=== PATIENT | female | born 1990 | race Caucasian/White ===

== ENCOUNTER 2022-11-21 13:20 | Outpatient (CLI) | payer BC, SELFPAY ==
--- NOTE | ~2022-11-21 | US_ITS ---
EXAMINATION: US thyroid DATE: 11/21/2022 13:40 INDICATION: Right thyroid nodule. TECHNIQUE: Multiple ultrasound images of the thyroid were obtained. COMPARISON: None. FINDINGS: The right thyroid lobe measures 5.9 x 2.2 x 2.9 cm. The left thyroid lobe measures 4.3 x 1.2 x 1.3 c m. In the right thyroid lobe, there is a 3.2 cm solid, hyperechoic, wider than tall nodule with smoo th margin without echogenic foci (TI-RADS TR3). IMPRESSION: 1. Right thyroid nodule. The patient reports history of a benign biopsy. Reviewed, dictated and finalized at location A.
== END 2022-11-21 13:21 ==
PROVIDERS: PCP Internal Medicine; Visit Provider Internal Medicine
DX: E04.1 Nontoxic single thyroid nodule (principal)
CPT/HCPCS: 76536

== ENCOUNTER 2023-04-19 08:30 | Emergency (ER) | payer OTHER, SELFPAY ==
--- NOTE | 2023-04-19 08:33 | ED.BACK ---
HPI - Back Pain/Injury General Chief Complaint: Back Pain/Injury Stated Complaint: Back Pain Time Seen by Provider: 04/19/23 09:14 Source: patient and RN notes reviewed Mode of arrival: ambulatory Limitations: no limitations History of Present Illness HPI Narrative: 32-year-old female presents to the [facility] with complaints of back pain since . States it seems to be getting better and then on Friday, 3 days ago states it became worse. Taken ibuprofen and apply ice tea. Has seen her chiropractor yesterday and was told to come to the [facility] if the pain did not improve. Patient states that she was taking patio, pain started a day or so later. Denies any loss of retention of bowel or bladder. Denies any numbness or tingling. Walks with a normal gait. Patient states the pain starts at her lower back, radiates across her lower back into her anterior thighs. Denies any direct trauma. Onset (ago): week(s) Treatments prior to arrival: NSAIDS and other (heat) Related Data Home Medications Medication Instructions Recorded Confirmed citalopram 40 mg tablet 40 mg PO DAILY 04/19/23 04/19/23 dapagliflozin propanediol 5 mg 5 mg PO DAILY 04/19/23 04/19/23 tablet (Farxiga) duloxetine 60 mg capsule,delayed 60 mg PO DAILY 04/19/23 04/19/23 release lisdexamfetamine 70 mg capsule 70 mg PO DAILY 04/19/23 04/19/23 (Vyvanse) semaglutide 1 mg/dose (4 mg/3 mL) 4 mg subcut WEEKLY 04/19/23 04/19/23 subcutaneous pen injector (Ozempic) Allergies Allergy/AdvReac Type Severity Reaction Status Date / Time amoxicillin Allergy Hives Verified 04/19/23 08:54 Review of Systems Review of Systems: All systems reviewed & are unremarkable except as noted in HPI and below Constitutional: Constitutional: Reports no additional constitutional complaints Eyes: Eyes: Reports no additional eye complaints ENT: Reports system reviewed and no additional complaints, except as documented Cardiovascular: Cardiovascular: Reports no additional cardiovascular complaints, Denies chest pain and Denies dyspnea Respiratory: Respiratory: Reports no additional respiratory complaints, Denies chest congestion, Denies cough and Denies dyspnea Gastrointestinal: Gastrointestinal: Reports no additional gastrointestinal complaints, Denies abdominal pain, Denies nausea and Denies vomiting Genitourinary: Genitourinary: Reports no additional female genitourinary complaints Musculoskeletal: Musculoskeletal: Reports as per HPI and Reports back pain (Lower lumbar) Integumentary/Breasts: Skin/Breast: Reports system reviewed and no additional complaints, except as docu Neurologic: Reports system reviewed and no additional complaints, except as documented Psychiatric: Psychiatric: Reports no additional psychiatric complaints Allergic/Immunologic: Allergic/Immunologic: Reports no additional allergic/immunologic complaints PMFSH Past Medical History Medical History Anxiety and depression Diabetes Obesity Comments At the time of my signature, I reviewed and agree with the nursing past medical, surgical, social, and family history. There is no relevant family history pertinent to the patient complaint. Exam Const: General: cooperative, healthy appearing, comfortable, no acute distress, well developed, alert and well nourished Nutritional Appearance: well nourished and obese Orientation/consciousness: patient oriented x3 Limitations: no limitations HENMT: Head: normal to inspection Ears: hearing grossly normal bilaterally and external ears normal Face/Nose/Sinus: Normal external nose present, Normal nares present, Normal nasal mucous membranes and turbinates present, normal facial exam and face symmetric Face and sinus: normal facial exam and face symmetric Eyes: General: appearance normal, both eyes and all related structures Alignment and Position: alignment normal Periorbital: periorbital
[2023-04-19 08:57] VITALS: BP 133/90; PULSE 82; RESP 16; TEMP 36.6; O2SAT 98
== END 2023-04-19 09:36 | disposition home or self-care (01) ==
PROVIDERS: Emergency Provider Nurse Practitioner; PCP Internal Medicine
DX: S39.012A Strain of muscle, fascia and tendon of lower back, initial encounter (principal); E11.9 Type 2 diabetes mellitus without complications; Z79.899 Other long term (current) drug therapy; X58.XXXA Exposure to other specified factors, initial encounter
CPT/HCPCS: 99213; G0463

== ENCOUNTER 2023-06-06 14:30 | Outpatient (RCR) | payer OTHER, SELFPAY ==
--- NOTE | 2023-05-09 15:38 | OPREHPOC ---
Outpatient Therapy Plan of Care This is a Multidisciplinary Plan of Care that may contain components documented by all disciplines (PT, OT, and ST.) PT Problem 1 PT Problem #1 Knowledge Deficit PT Goal 1 Goal 1* indep with HEP 2* use correct body mechanics with lifting floor/ waist height PT Problem 2 PT Problem #2 Pain PT Goal 1 Goal 1* pain rating at worst of 5/10 2* pt report times of NO pain 3* self assessment Oswestry rating of 24% limitation in activity level 4* intermittent, radicular pain into both LE, to knee at worst PT Problem 3 PT Problem #3 Impaired Flexibility PT Goal 1 Goal improve flexibility of hips, to maintain balance of hips 1* supine hamstring L 75' 2* no pain with L hamstring supine stretch 3* prone hip IR with knee flexion 90' R = L ROM PT Problem 4 PT Problem #4 Impaired Strength PT Goal 1 Goal increase trunk and hip strength, to stabilize spine and support to spine: 1* bilateral UE box lift 20# floor/waist height x 3 reps 2* perform 20 reps of mat strengthening exercises with good stability 3* stand with sacrum in neutral/ no forward rotation R
--- NOTE | 2023-05-09 15:51 | PTOPEVAL1 ---
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 She has a history of chronic back pain, that flared up in Mar when digging the ground for a patio. The pain is less than it was initially. Self assessment Oswestry rating of 36% limitation in activity level. She is able to perform her home and work tasks, with increased pain. With the evaluation: standing trunk flexion pain > extension motions; tightness over L hamstring with pain in back; decreased strength and stability of spine, most pain over sacrum; Skilled PT services are indicated for modalities to decrease pain and spasms, therapeutic exercises to incraease trunk and LE ROM and strength, with education for HEP and posture/body mechanics. Plan of Care Interventions Electrical Stimulation,Hot Pack/Cold Pack,Manual Therapy,Mechanical Traction,Neuro Re-education, Patient Education,Therapeutic Activities, Therapeutic Exercise,Ultrasound,Other Other Interventions taping, [facility] PT Services Indicated Yes Treatment Frequency and 1-2x/wk x 5
--- NOTE | 2023-06-06 14:57 | PTOPDC ---
Assessment and note entered by Bonny Hampton, PT Discharge Information Assessment Status Discharge Diagnosis lumbar pain Onset Mar 2023 Subjective Information is doing much better, do not have leg pain anymore have been doing the exercises at home and they help ready to be finished with therapy Reported Pain Level Pain Score Self Report Additional Pain Score Comments pain range 0-2/10 in back, no radicular pain into legs increase pain with pressing on area decrease pain; rest is not taking any pain meds; gabapentin helped- no longer taking it; Assessment PT Clinical Summary Lisa has received 4 PT sessions. Compared to the initial evaluation: pain decreased from 4-9/10 to 0-2/10; no longer has radicular pain into LE's; self assessment Oswestry from 36% to 0% limitation in activity level; standing trunk and supine hip motions do not elicit pain; increased flexibility of R and L hamstring and hip IR is equal ROM; bilateral UE box lift from waist /floor height 30# with good technique and no pain increase; education completed for HEP and body mechanics. All of the goals were met. Discharge PT services. She is to continue with her HEP and monitoring her back posture/ positioning. Plan of Care PT Services Indicated No
== END 2023-06-06 15:28 | disposition home or self-care (01) ==
LOC: ANHPT 14:30
PROVIDERS: PCP Internal Medicine; Visit Provider Internal Medicine
DX: M54.30 Sciatica, unspecified side (principal)
CPT/HCPCS: 97014; 97110; 97161; 97530; G0283

== ENCOUNTER 2023-09-13 14:38 | Emergency (ER) | payer OTHER, SELFPAY ==
[2023-09-13 14:48] VITALS: BP 162/76; PULSE 106; RESP 16; TEMP 37.3; O2SAT 99
--- NOTE | 2023-09-13 15:06 | ED.URI ---
HPI - URI/Sore Throat General Chief Complaint: Upper Respiratory Infection Stated Complaint: FEVER/CHILLS/SORE THROAT/DRAINAGE Time Seen by Provider: 09/13/23 15:06 History of Present Illness HPI Narrative: 32 y/o female presented for c/o sore throat, nasal congestion and drainage, fever. Onset 3 days. Taking ibuprofen for symptoms, last dose was yesterday. 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 Denies sob, wheezing, cp, palpitations, cough, n/v/d. Related Data Home Medications Medication Instructions Recorded Confirmed duloxetine 60 mg capsule,delayed 60 mg PO DAILY 04/19/23 09/13/23 release lisdexamfetamine 70 mg capsule 70 mg PO DAILY 04/19/23 09/13/23 (Vyvanse) semaglutide 1 mg/dose (4 mg/3 mL) 4 mg subcut WEEKLY 04/19/23 09/13/23 subcutaneous pen injector (Ozempic) promethazine 12.5 mg tablet 12.5 mg PO DIRECTED 09/13/23 09/13/23 Allergies Allergy/AdvReac Type Severity Reaction Status Date / Time amoxicillin Allergy Hives Verified 09/13/23 15:20 Review of Systems Review of Systems: CONSTITUTIONAL: reports body aches, fever, chills, or sweats. EYES: Denies visual changes, redness, or discharge. ENT: reports rhinorrhea, congestion, sore throat CARDIOVASCULAR: Denies chest pain, palpitations, or edema. RESPIRATORY: Denies dyspnea. GASTROINTESTINAL: Denies abdominal pain, nausea, vomiting, or diarrhea. SKIN: Denies rash, itching, or wounds. MUSCULOSKELETAL: Denies back pain, joint pain NEUROLOGIC: Denies headache PMFSH Past Medical History Medical History Anxiety and depression Diabetes Obesity Exam Narrative: GENERAL: Ill-appearing, no acute distress. EYES: conjunctivae clear ENT: Mucous membranes moist. TMs pearly morales with normal light reflex bilaterally; no tragal tenderness. Oropharynx erythematous without lesions. Tonsils enlarged 2+ and without exudate. No drooling, no hoarseness, no trismus, uvula midline. No tripod positioning, hot potato voice, or soft palate swelling. NECK: Supple. left anterior cervical lymphadenopathy CHEST: Clear to auscultation, breath sounds equal. No respiratory distress, speaks in full sentences. HEART: Regular rate and rhythm. No murmur heard. SKIN: Warm, sweaty NEURO: Alert and oriented x3. Course Course Emergency Course: Patient is aware of diagnosis, understands and agrees to treatment plan. Anticipatory guidance given. Patient agrees to follow-up as directed and is aware of reasons to seek care at the emergency department. Portions of this record may have been created with voice recognition software Level of Care: Express Care Visit Vital Signs Vital signs: Vital Signs Temperature 99.1 F 09/13/23 14:48 Pulse Rate 106 H 09/13/23 14:48 Respiratory Rate 16 09/13/23 14:48 Blood Pressure 162/76 H 09/13/23 14:48 Pulse Oximetry 99 09/13/23 14:48 Temperature 99.1 F 09/13/23 14:48 Pulse Rate 106 H 09/13/23 14:48 Respiratory Rate 16 09/13/23 14:48 Blood Pressure 162/76 H 09/13/23 14:48 Pulse Oximetry 99 09/13/23 14:48 MDM - URI/Sore Throat MDM Narrative Medical decision making narrative: Neg flu, covid, strep result reviewed with pt. Will treat for strep at this time with akbar dillon allergy. Advise supportive treatments. Patient is appropriate for outpatient treatment and follow-up. Differential Diagnosis Differential diagnosis: Likely upper respiratory infection, viral infection and pharyngitis Discharge Plan Discharge Clinical Impression: Upper respiratory infection Patient Disposition: Home, Self-Care Condition: Stable Instructions: Antibiotic Form Additional Instructions: Flu and COVID negative. Take the antibiotic as directed. Fever and sore throat typically resolve within one to three days. Most patients can return to work, after 12 to 24 hours of antibiotic therapy, provided you are fever free and o
== END 2023-09-13 15:33 | disposition home or self-care (01) ==
PROVIDERS: Emergency Provider Nurse Practitioner Family; PCP Internal Medicine
DX: J06.9 Acute upper respiratory infection, unspecified (principal); F41.8 Other specified anxiety disorders; E11.9 Type 2 diabetes mellitus without complications; E66.9 Obesity, unspecified; Z68.43 Body mass index [BMI] 50.0-59.9, adult; Z20.822 Contact with and (suspected) exposure to COVID-19
CPT/HCPCS: 87081; 87426; 87804; 87880; 99213; G0463

== ENCOUNTER 2023-09-15 19:39 | Emergency (ER) | payer OTHER, SELFPAY ==
--- NOTE | 2023-09-15 19:42 | ED.EYEPROB ---
HPI - Eye Problem General Chief complaint: Eye Problems Stated complaint: [facility] Source: patient and RN notes reviewed Mode of arrival: ambulatory Limitations: no limitations History of Present Illness HPI Narrative: Patient is a 32-year-old female who presents to the [facility] with complaints of right eye pain, redness, and drainage. Patient states that she woke up this morning and had itching and crusting noted to bilateral eyes. She states that her right eye continued to have drainage throughout the day. Purulent drainage noted at this time. She denies visual disturbance. 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 Related Data Home Medications Medication Instructions Recorded Confirmed duloxetine 60 mg capsule,delayed 60 mg PO DAILY 04/19/23 09/15/23 release lisdexamfetamine 70 mg capsule 70 mg PO DAILY 04/19/23 09/15/23 (Vyvanse) semaglutide 1 mg/dose (4 mg/3 mL) 4 mg subcut WEEKLY 04/19/23 09/15/23 subcutaneous pen injector (Ozempic) promethazine 12.5 mg tablet 12.5 mg PO DIRECTED 09/13/23 09/15/23 Allergies Allergy/AdvReac Type Severity Reaction Status Date / Time amoxicillin Allergy Hives Verified 09/13/23 15:20 Review of Systems Review of Systems: CONSTITUTIONAL: Denies fever, chills, or sweats. EYES: Denies visual changes, but reports right eye redness and discharge. ENT: Denies otalgia and sore throat CARDIOVASCULAR: Denies chest pain, palpitations, or edema. RESPIRATORY: Denies cough or dyspnea. GASTROINTESTINAL: Denies abdominal pain, nausea, vomiting, or diarrhea. GENITOURINARY: Denies dysuria or hematuria. SKIN: Denies rash or itching. MUSCULOSKELETAL: Denies back pain, joint pain, or myalgia. NEUROLOGIC: Denies headache, numbness, or weakness. Pertinent positives per HPI. PMFSH Past Medical History Medical History Anxiety and depression Diabetes Obesity Comments At the time of my signature, I reviewed and agree with the nursing past medical, surgical, social, and family history. There is no relevant family history pertinent to the patient complaint. Exam Narrative: GENERAL: This is a well-nourished, well-developed patient, in no apparent distress. HEAD: normocephalic, atraumatic. EYES: Sclera clear/white on left; reddened on right. Right eye drainage present. Vision is grossly intact. EARS: External ears normal, auditory canals clear and without drainage, TMs normal without perforation. Hearing grossly intact. NOSE: External nose normal with no obvious nasal discharge, nares without redness, no rhinorrhea. THROAT: Mucous membranes moist, posterior pharynx clear. NECK: Neck supple, non-tender without lymphadenopathy, masses or thyromegaly. CARDIOVASCULAR: Regular rate and rhythm without murmurs, gallops, or rubs. RESPIRATORY: Clear to auscultation. Breath sounds equal bilaterally. No wheezes, rales, or rhonchi. GASTROINTESTINAL: Abdomen soft, non-tender, nondistended. Bowel sounds are active. No hepato-splenomegaly, or palpable masses. No guarding. SKIN: warm, intact with no suspicious lesions or rash, good texture and turgor. NEURO: awake, alert, and oriented to person, place and time. There were no obvious focal neurologic abnormalities. Course Course Level of Care: Express Care Visit Vital Signs Vital signs: Vital Signs Temperature 97.7 F 09/15/23 19:43 Pulse Rate 95 09/15/23 19:43 Respiratory Rate 16 09/15/23 19:43 Blood Pressure 127/99 H 09/15/23 19:43 Pulse Oximetry 98 09/15/23 19:43 Oxygen Delivery Room Air 09/15/23 19:43 Temperature 97.7 F 09/15/23 19:43 Pulse Rate 95 09/15/23 19:43 Respiratory Rate 16 09/15/23 19:43 Blood Pressure 127/99 H 09/15/23 19:43 Pulse Oximetry 98 09/15/23 19:43 Oxygen Delivery Room Air 09/15/23 19:43 Reviewed MDM - Eye Problem MDM Narrative Medical decision making narrative: [place]
[2023-09-15 19:43] VITALS: BP 127/99; PULSE 95; RESP 16; TEMP 36.5; O2SAT 98
== END 2023-09-15 19:52 | disposition home or self-care (01) ==
PROVIDERS: Emergency Provider Nurse Practitioner; PCP Internal Medicine
DX: H10.31 Unspecified acute conjunctivitis, right eye (principal); F41.8 Other specified anxiety disorders; E11.9 Type 2 diabetes mellitus without complications; E66.9 Obesity, unspecified; Z68.43 Body mass index [BMI] 50.0-59.9, adult
CPT/HCPCS: 99213; G0463

== ENCOUNTER 2023-09-18 14:45 | Outpatient (CLI) | payer OTHER, SELFPAY ==
--- NOTE | ~2023-09-18 | CT_ITS ---
EXAMINATION: CT soft tissue neck w con DATE: 09/18/2023 15:59 INDICATION: Left peritonsillar abscess. TECHNIQUE: Computed tomography (CT) of the neck was performed with 75 mL Omnipaque-350 intravenous co ntrast. Automated exposure control and iterative reconstruction technique were employed. The dose-ashley gth product was 629.67 mGy-cm. COMPARISON: Thyroid ultrasound 11/21/2022 FINDINGS: There is a stable 2.8 cm nodule in right thyroid lobe and patient. The patient previously r eported history of a benign biopsy. There is mild bilateral hilar internal jugular chain lymphadenopa thy. For example, a right internal jugular chain node measures 2.1 x 1.7 cm. The palatine tonsils are enlarged. No abscess. The adenoids are enlarged. There is mild mucosal thickening in the paranasal s inuses. The cervical carotid arteries are normal. There is mild cervical spondylosis. IMPRESSION: 1. Enlarged palatine tonsils and adenoids. No abscess. 2. Mild bilateral high internal jugular chain lymphadenopathy, likely reactive. Reviewed, dictated and finalized at location E.
== END 2023-09-18 14:46 | disposition home or self-care (01) ==
PROVIDERS: PCP Internal Medicine; Visit Provider Internal Medicine
DX: J35.1 Hypertrophy of tonsils (principal); R59.0 Localized enlarged lymph nodes
CPT/HCPCS: 70491; Q9967

== ENCOUNTER 2023-09-27 10:36 | Emergency (ER) | payer OTHER, SELFPAY ==
--- NOTE | ~2023-09-27 | XR_ITS ---
EXAMINATION: XR ankle RT min 3V DATE: 09/27/2023 11:22 INDICATION: Right ankle injury and pain and swelling. TECHNIQUE: 4 views of right ankle were obtained. COMPARISON: None. FINDINGS: Bone alignment is normal. No fracture. There is mild ankle joint osteoarthritis. There is m ild talonavicular joint osteoarthritis. There are enthesophytes the posterior and plantar aspects of calcaneal tuberosity. Partially visualized are plate and screws in medial right foot. There is ankle soft tissue swelling. IMPRESSION: 1. Mild polyarticular osteoarthritis. Reviewed, dictated and finalized at location A.
[2023-09-27 10:46] VITALS: BP 133/44; PULSE 97; RESP 16; TEMP 36.6; O2SAT 98
[2023-09-27 10:54] VITALS: BP 133/44; PULSE 97; RESP 16; TEMP 36.6; O2SAT 98
--- NOTE | 2023-09-27 11:05 | ED.LOWEXIN ---
HPI - Extremity Injury (Lower) General Chief Complaint: Extremity Injury, Lower Stated Complaint: Rt Ankle Pain Due to Fall Time Seen by Provider: 09/27/23 11:21 Source: patient, RN notes reviewed and old records reviewed Mode of arrival: ambulatory Limitations: no limitations History of Present Illness HPI Narrative: 32-year-old female to Express Care from complaint right ankle pain and swelling after twisting ankle on uneven rocks/ground. Patient endorses history of prior sprains to same ankle. Patient has attempted to treat at home with Tylenol and ibuprofen with little relief. Patient utilizing a cane upon arrival to assist with walking. Patient denies numbness, tingling, weakness. Related Data Home Medications Medication Instructions Recorded Confirmed duloxetine 60 mg capsule,delayed 60 mg PO DAILY 04/19/23 09/27/23 release lisdexamfetamine 70 mg capsule 70 mg PO DAILY 04/19/23 09/27/23 (Vyvanse) semaglutide 1 mg/dose (4 mg/3 mL) 4 mg subcut WEEKLY 04/19/23 09/27/23 subcutaneous pen injector (Ozempic) promethazine 12.5 mg tablet 12.5 mg PO DIRECTED 09/13/23 09/27/23 clindamycin HCl 150 mg capsule mg 09/27/23 levofloxacin 500 mg tablet mg 09/27/23 09/27/23 Allergies Allergy/AdvReac Type Severity Reaction Status Date / Time amoxicillin Allergy Hives Verified 09/27/23 10:47 Review of Systems Review of Systems: All systems reviewed & are unremarkable except as noted in HPI and below Constitutional: Constitutional: Reports no additional constitutional complaints Eyes: Eyes: Reports no additional eye complaints ENT: Reports system reviewed and no additional complaints, except as documented Cardiovascular: Cardiovascular: Reports no additional cardiovascular complaints, Denies chest pain and Denies dyspnea Respiratory: Respiratory: Reports no additional respiratory complaints, Denies cough and Denies dyspnea Musculoskeletal: Musculoskeletal: Reports as per HPI, Reports abnormal gait, Denies deformity, Reports arthralgias, Reports joint swelling, Reports limited range of motion, Denies muscle weakness, Denies numbness and Denies tingling Neurologic: Reports system reviewed and no additional complaints, except as documented Psychiatric: Psychiatric: Reports no additional psychiatric complaints PMFSH Past Medical History Medical History Anxiety and depression Diabetes Obesity Comments At the time of my signature, I reviewed and agree with the nursing past medical, surgical, social, and family history. There is no relevant family history pertinent to the patient complaint. Exam Const: General: cooperative, no acute distress, alert, in distress mild (from pain), uncomfortable and well nourished Nutritional Appearance: well nourished Orientation/consciousness: patient oriented x3 Limitations: no limitations HENMT: Head: normal to inspection Ears: external ears normal Face/Nose/Sinus: Normal external nose present, Normal nares present, normal facial exam, No erythema and No edema Face and sinus: normal facial exam, no erythema and no edema Mouth: Yes Normal oral and palatal mucosa present Eyes: General: appearance normal, both eyes and all related structures Neck: Neck: normal visual inspection, full ROM and no meningeal signs Lymphatic: no lymphadenopathy noted and no lymphedema noted Chest: Chest palpation & inspection: normal inspection of the chest Resp: Effort & Inspection: normal respiratory effort and able to speak in complete sentences Auscultation: clear to auscultation bilaterally Cardio: Jugular venous distension: no JVD Rate: regular rate Rhythm: regular rhythm Back/Spine/Pelvis: Cervical Spine: cervical ROM normal Skin: General skin exam: normal color, no rashes or lesions noted and turgor normal Neuro: General: patient oriented x3, gait normal, moves all extremities and no meningeal signs Speech: normal s
== END 2023-09-27 11:50 | disposition home or self-care (01) ==
PROVIDERS: Emergency Provider Nurse Practitioner Family; PCP Internal Medicine
DX: S93.401A Sprain of unspecified ligament of right ankle, initial encounter (principal); S96.911A Strain of unspecified muscle and tendon at ankle and foot level, right foot, initial encounter; X50.9XXA Other and unspecified overexertion or strenuous movements or postures, initial encounter; E11.9 Type 2 diabetes mellitus without complications; E66.9 Obesity, unspecified; Z68.43 Body mass index [BMI] 50.0-59.9, adult; F41.9 Anxiety disorder, unspecified; F32.A Depression, unspecified
CPT/HCPCS: 73610; 99213; G0463

== ENCOUNTER 2023-10-07 10:50 | Outpatient (CLI) | payer OTHER, SELFPAY ==
--- NOTE | ~2023-10-07 | XR_ITS ---
AP and lateral views of the right tibia/fibula Clinical History: Pain Findings: No acute fracture or dislocation is seen. Osseous alignment is anatomic. Joint spaces are p reserved without significant erosive or degenerative change. Soft tissues are unremarkable. Impression: Unremarkable right tib-fib radiographs. Reviewed, dictated and finalized at [facility]. Impression: Unremarkable right tib-fib radiographs.
== END 2023-10-07 10:51 | disposition home or self-care (01) ==
PROVIDERS: PCP Internal Medicine; Visit Provider Internal Medicine
DX: M25.571 Pain in right ankle and joints of right foot (principal)
CPT/HCPCS: 73590

== ENCOUNTER 2024-06-23 18:40 | Emergency (ER) | payer OTHER, SELFPAY ==
[2024-06-23 19:05] VITALS: BP 121/86; PULSE 93; RESP 16; TEMP 36.8; O2SAT 97
--- NOTE | 2024-06-23 19:33 | ED.URI ---
HPI - URI/Sore Throat General Chief Complaint: Upper Respiratory Infection Stated Complaint: SORE THROAT/EARACHE/SINUS Time Seen by Provider: 06/23/24 19:33 Source: patient Mode of arrival: ambulatory Limitations: no limitations History of Present Illness HPI Narrative: 33-year-old female presents with complaint of sinus congestion and pressure, postnasal drainage, sore throat, throat swelling, right ear pain. Symptoms getting progressively worse over the past 2 weeks. Afebrile. Taking [id number] Sudafed with no relief of symptoms. Has intermittently tried Flonase. All systems reviewed and negative except as noted above. Related Data Home Medications ?Medication ?Instructions ?Recorded ?Confirmed ?Last Taken ?Type lisdexamfetamine 70 mg capsule 70 mg PO DAILY 04/19/23 10/23/23 Unknown History (Vyvanse) dapagliflozin propanediol 5 mg mg 06/23/24 Unknown History tablet (Farxiga) levonorgestrel (Mirena) 1 device intrauterine ONCE 06/23/24 Unknown History Allergies Allergy/AdvReac Type Severity Reaction Status Date / Time amoxicillin Allergy Hives Verified 06/23/24 19:24 Review of Systems Review of Systems: CONSTITUTIONAL: Denies fever, chills, or sweats. EYES: Denies visual changes, redness, or discharge. ENT: Reports rhinorrhea, congestion, sore throat, right ear pain CARDIOVASCULAR: Denies chest pain, palpitations, or edema. RESPIRATORY: Denies cough or dyspnea. GASTROINTESTINAL: Denies abdominal pain, nausea, vomiting, or diarrhea. GENITOURINARY: Denies dysuria or hematuria. SKIN: Denies rash or itching. MUSCULOSKELETAL: Denies back pain, joint pain, or myalgia. NEUROLOGIC: Denies headache, numbness, or weakness. PSYCHIATRIC: Denies anxiety or depression. All other systems reviewed are negative, except as documented in HPI. [facility] Past Medical History Medical History (Updated 06/23/24 @ 19:40 by Jinny Diaz NP) Obesity Diabetes Anxiety and depression Surgical History Surgical History (System 11/24/23 @ 08:17 by Akhil Murphy) History of foot surgery Social History Social History (System 11/24/23 @ 08:17 by Akhil Murphy) Smoking status: Never smoker Alcohol intake: never Substance use: current Substance use type: marijuana Do You Feel Safe in your Home?: Yes Lack of Transportation: No Lack of Food: Never True Current Housing: I Have Housing Concerned About Future Housing: No Difficulty Paying Gas/Electric Bills: No Difficulty Paying for Meds: No Currently Unemployed: No Education: Master's Degree or Higher Difficulty w/ Childcare or Family Care: No Living arrangements: alone 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 There is no relevant family history pertinent to the presenting complaint. Exam Narrative: GENERAL: This is a well-nourished, well-developed patient, in no apparent distress. HEAD: normocephalic, atraumatic. EYES: PERRL. Sclera clear/white. Vision is grossly intact. EARS: External ears normal, auditory canals clear and without drainage, fluid bilateral TMs without erythema or perforation. Hearing grossly intact. NOSE: External nose normal congestion with purulent nasal drainage, erythema and swelling to bilateral nares. THROAT: Mucous membranes moist, erythematous with swelling. Purulent postnasal drainage. Exudates. NECK: Neck supple, non-tender without lymphadenopathy, masses or thyromegaly. CARDIOVASCULAR: Regular rate and rhythm without murmurs, gallops, or rubs. RESPIRATORY: Clear to auscultation. Breath sounds equal bilaterally. No wheezes, rales, or rhonchi. SKIN: warm, Dry, intact with no suspicious lesions or rash, good texture and turgor. NEURO: awake, alert, and oriented to person, place and time. There were no obvious focal neurologic abnormalities. EXTREMITIES: No joint tenderness, effusion, or edema noted. Course Course Level of Care: Express Care Visit Vital Signs Vital signs: Vital Signs Temperature 36.8 C 06/23/24 19:05 Pulse Rate 93 06/23/24 19:05 Respiratory Rate 16 06/23/24 19:05 Blood Pressure 121/86 06/23/24 19:05 Pulse Oximetry 97 06/23/24 19:05 Temperature 36.8 C 06/23/24 19:05 Pulse Rate 93 06/23/24 19:05 Respiratory Rate 16 06/23/24 19:05 Blood Pressure 121/86 06/23/24 19:05 Pulse Oximetry 97 06/23/24 19:05 Reviewed MDM - URI/Sore Throat MDM Narrative Medical decision making narrative: Will treat patient for bacterial sinusitis due to duration of symptoms and exam findings. Strep test negative. Strep culture ordered. Patient is alert, nontoxic. Please be advised this is a medical document. It is intended for dqbr-kk-olau communication. It is written in medical language and may contain unfamiliar abbreviations or verbiage. Medical documents are intended to carry relevant information, facts as evident, and the clinical opinion of the practitioner at the time of the encounter. This report may have been done utilizing a voice recognition system. Attempts have been made to correct errors. However, there may be uncorrected grammatical, spelling, and recognition errors present. The file time of this note does not necessarily represent the time of service. Differential Diagnosis Differential diagnosis: Likely upper respiratory infection, otitis media, sinusitis, viral infection, influenza and pharyngitis Discharge Plan Discharge Clinical Impression: Acute bacterial sinusitis Patient Disposition: Home, Self-Care Condition: Stable Instructions: Antibiotic Form, Sinusitis (ED) Additional Instructions: Your strep test was negative today. A strep culture was ordered and results will take 24-48 hours. Take medications as prescribed. Continue using [id number]-xeleoph Flonase as directed on packaging. Purchase an uazl-mvj-uoxxtpm antihistamine such as Claritin or Zyrtec and take daily. Take Tylenol or ibuprofen every 6-8 hours as needed for pain and fever. Place cool mist humidifier in bedroom where you sleep. Drink at least 64 oz of water a day. Follow-up with your doctor if symptoms are not improving. Patient Language: Hungarian Prescriptions: New doxycycline hyclate 100 mg capsule 100 mg PO BID 7 Days Qty: 14 0RF methylprednisolone [Medrol (Esteban)] 4 mg tablets,dose pack See Rx Instructions PO .COMPLEX Qty: 21 0RF Rx Instructions: orally per package directions No Action lisdexamfetamine [Vyvanse] 70 mg capsule 70 mg PO DAILY dapagliflozin propanediol [Farxiga] 5 mg tablet Mirena 21 mcg/24hr (up to 8 yrs) 52 mg intrauterine device 1 device intrauterine ONCE Rx Instructions: as a single dose Follow-up/Referrals: PHYSICIAN,[employer]OR [employer] [Primary Care Provider] - Time of Disposition: 19:42
[2024-06-23 19:36] LABS: EDSTREPNEGPOS1 Negative (Negative)
== END 2024-06-23 19:46 | disposition home or self-care (01) ==
PROVIDERS: Emergency Provider Nurse Practitioner Family
DX: J01.90 Acute sinusitis, unspecified (principal); E11.9 Type 2 diabetes mellitus without complications; E66.9 Obesity, unspecified; Z68.42 Body mass index [BMI] 45.0-49.9, adult; F12.90 Cannabis use, unspecified, uncomplicated
CPT/HCPCS: 87081; 87880; 99213; G0463

== ENCOUNTER 2024-09-13 08:10 | Emergency (ER) | payer OTHER, SELFPAY ==
[2024-09-13 08:17] VITALS: BP 130/92; PULSE 95; RESP 16; TEMP 36.2; O2SAT 98
--- NOTE | 2024-09-13 08:32 | ED_ITS ---
HPI - Female Genitourinary General Chief complaint: Urogenital-Female Stated complaint: YEAST INFECTION Source: patient Mode of arrival: ambulatory Limitations: no limitations History of Present Illness HPI Narrative: Patient is a 33 year old female who presents to the clinic with complaints of itching and burning to the outside of the vagina x 1 day. She states that she has had yeast infections in the past, and it has presented the same way. Patient is currently on Farxiga. Denies any concern for STD's, nausea, vomiting, diarrhea, and urinary complaints. Related Data Home Medications ?Medication ?Instructions ?Recorded ?Confirmed ?Last Taken ?Type lisdexamfetamine 70 mg capsule 70 mg PO DAILY 04/19/23 10/23/23 Unknown History (Vyvanse) dapagliflozin propanediol 5 mg mg 06/23/24 Unknown History tablet (Farxiga) levonorgestrel (Mirena) 1 device intrauterine ONCE 06/23/24 Unknown History Allergies Allergy/AdvReac Type Severity Reaction Status Date / Time amoxicillin Allergy Hives Verified 06/23/24 19:24 Review of Systems Review of Systems: CONSTITUTIONAL: Denies body aches, fever, chills, or sweats. CARDIOVASCULAR: Denies chest pain, palpitations, or edema. RESPIRATORY: Denies cough or dyspnea. GASTROINTESTINAL: Denies abdominal pain, nausea, vomiting, or diarrhea. GENITOURINARY: Denies dysuria, frequency, urgency, hematuria, flank pain, discharge. Reports itching and burning to outside of the vagina. SKIN: Denies rash, itching, or wounds. MUSCULOSKELETAL: Denies back pain or myalgia. All systems reviewed & are unremarkable except as noted in HPI and below [facility] Past Medical History Medical History (Updated 09/13/24 @ 08:34 by Gisel Landis, FRANCHESCA) Obesity Diabetes Anxiety and depression Surgical History Surgical History (System 11/24/23 @ 08:17 by Akhil Murphy) History of foot surgery Social History Social History (System 11/24/23 @ 08:17 by Akhil Murphy) Smoking status: Never smoker Alcohol intake: never Substance use: current Substance use type: marijuana Do You Feel Safe in your Home?: Yes Lack of Transportation: No Lack of Food: Never True Current Housing: I Have Housing Concerned About Future Housing: No Difficulty Paying Gas/Electric Bills: No Difficulty Paying for Meds: No Currently Unemployed: No Education: Master's Degree or Higher Difficulty w/ Childcare or Family Care: No Living arrangements: alone 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 Please see nursing chart for further information. There is no relevant family history pertinent to the presenting complaint. Exam Narrative: GENERAL: Well-appearing and in no acute distress. ENT: Mucous membranes pink and moist. NECK: Normal AROM. ?Supple. ? CHEST: ?No respiratory distress. Clear to auscultation. HEART: Regular rate and rhythm. ABDOMEN: Soft, nontender, nondistended, normal active bowel sounds. ?No CVA tenderness. SKIN: Warm, dry, no rash. : Patient deferred exam. NEURO: No focal deficits. Alert and oriented x3. Gait steady. PSYCH: ?Normal affect. ? Course Course Level of Care: Express Care Visit Vital Signs Vital signs: Vital Signs Temperature 97.2 F L 09/13/24 08:17 Pulse Rate 95 09/13/24 08:17 Respiratory Rate 16 09/13/24 08:17 Blood Pressure 130/92 H 09/13/24 08:17 Pulse Oximetry 98 09/13/24 08:17 Temperature 97.2 F L 09/13/24 08:17 Pulse Rate 95 09/13/24 08:17 Respiratory Rate 16 09/13/24 08:17 Blood Pressure 130/92 H 09/13/24 08:17 Pulse Oximetry 98 09/13/24 08:17 Reviewed. MDM - Female Genitourinary MDM Narrative Medical decision making narrative: Discussed physical exam findings. Fluconazole for yeast infection. Advised supportive measures and signs/symptoms to go to the ER. Pt is appropriate for outpatient treatment and follow up. Differential Diagnosis Differential diagnosis: Likely urinary tract infection, bacterial vaginosis and other (STD) Critical Care Time Critical Care Time Critical Care Time: No Discharge Plan Discharge Clinical Impression: Yeast infection Patient Disposition: Home Condition: Stable Instructions: Antibiotic Form, Yeast Infection (ED) Additional Instructions: Take medication as prescribed today. In 3 days take additional tablet, if symptoms persist. Do not use any scented soaps, tampons or pads. Make sure to always urinate after sex. Use non scented, non flavored condoms. Do not sit and bath with scented soaps or oils. Where cotton underwear and change underwear after exercise. Patient Language: Yi Prescriptions: New fluconazole 150 mg tablet 150 mg PO ONCE Qty: 2 0RF No Action lisdexamfetamine [Vyvanse] 70 mg capsule 70 mg PO DAILY dapagliflozin propanediol [Farxiga] 5 mg tablet Mirena 21 mcg/24hr (up to 8 yrs) 52 mg intrauterine device 1 device intrauterine ONCE Rx Instructions: as a single dose Follow-up/Referrals: PHYSICIAN,[employer]ERGARTEN TEACHER [Primary Care Provider] - Stand Alone Forms: Work/School Release IP Time of Disposition: 08:35
== END 2024-09-13 08:43 | disposition home or self-care (01) ==
DX: B37.31 Acute candidiasis of vulva and vagina (principal); E11.9 Type 2 diabetes mellitus without complications; E66.9 Obesity, unspecified; Z68.43 Body mass index [BMI] 50.0-59.9, adult; F12.90 Cannabis use, unspecified, uncomplicated
CPT/HCPCS: 99213; G0463